=== PATIENT | female | born 1995 | race Two or more races ===

== ENCOUNTER 2020-05-14 19:06 | Emergency (ER) | payer BC, OTHER ==
[~2020-05-14] VITALS: Ht 154.9 cm; Wt 56.2 kg
[2020-05-14 19:18] VITALS: BP 139/86
[2020-05-14] MEDS ORDERED: L.E.T SOLUTION TP ONE ×2 (19:30→20:18)
[2020-05-14] MEDS ORDERED: MICROFIBRILLAR COLLAGEN 1 GM TP ONE ×2 (19:30→20:18)
--- NOTE | 2020-05-14 19:57 | NUR ---
pt walked back to room, finger lac but has quik clot on it so unable to viusalize, saline and hydrogen peroxide to soak finger. call [employer]. as
[2020-05-14] MEDS ORDERED: PLEASE ENTER ALLERGIES MC SCH (21:00)
[2020-05-14] MEDS ORDERED: LIDOCAINE-MPF 1%, 5ML INFIL ONE (21:00)
[2020-05-14] MEDS ORDERED: LIDOCAINE-MPF 2% ,5ML ONE (21:10)
--- NOTE | 2020-05-14 21:15 | NUR ---
CHERY BROWN IN TO SUTURE.
--- NOTE | 2020-05-14 21:17 | NUR ---
REPORT TO BONIFACIO COLON.
[2020-05-14] MEDS ORDERED: NEOSPORIN OINT. PKT 1 PACKET ONE (21:27)
--- NOTE | 2020-05-14 22:00 | NUR ---
DISCHARGE INSTRUCTIONS EXPLAINED TO PT. AND SIG. OTHER. BOTH VERBALIZED UNDERSTANDING. AMBULATED TO JONNA
== END 2020-05-14 22:03 | disposition home or self-care (01) ==
LOC: ED 20:58
DX: S61.211A Laceration without foreign body of left index finger without damage to nail, initial encounter (principal); W26.0XXA Contact with knife, initial encounter; Y93.89 Activity, other specified; Y92.098 Other place in other non-institutional residence as the place of occurrence of the external cause; Y99.8 Other external cause status
CPT/HCPCS: 12041; 99284